=== PATIENT | male | born 1970 | race Two or more races ===

== ENCOUNTER 2020-02-17 09:10 | Emergency (ER) | payer OTHER ==
[~2020-02-17] VITALS: Ht 175.3 cm; Wt 86.2 kg
[2020-02-17] MEDS ORDERED: cloNIDine HCL 0.1 MG TAB PO ONE (09:30)
[2020-02-17] MEDS ORDERED: ACETAMINOPHEN 325 MG TAB PO ONE (10:00)
[2020-02-17 10:32] VITALS: BP 155/101
== END 2020-02-17 10:52 | disposition home or self-care (01) ==
LOC: ER 09:10
DX: U07.1 COVID-19 (principal); I16.0 Hypertensive urgency; I10 Essential (primary) hypertension
CPT/HCPCS: 71045

== ENCOUNTER 2020-12-08 00:27 | Emergency (ER) | payer OTHER ==
[~2020-12-08] VITALS: Ht 175.3 cm; Wt 87.1 kg
[2020-12-08 00:30] VITALS: BP 183/99
[2020-12-08 01:07] LABS: Basophils # (auto) 0.2 10 ^3/uL (0-0.2); Basophils % (auto) 1.8 % (0.0-2.0); Eosinophils # (auto) 0.3 10 ^3/uL (0-0.8); Eosinophils % (auto) 2.7 % (0.0-7.0); Hematocrit 44.3 % (41.0-53.0); Lymphocytes # (auto) 2.4 10 ^3/uL (0.4-5.4); Lymphocytes % (auto) 23.3 % (10.0-50.0); Mean Corpuscular Hemoglobin 29.5 pg (28.0-32.0); Mean Corpuscular Hgb Conc. 33.9 g/dL (32.0-36.0); Monocytes # (auto) 0.7 10 ^3/uL (0-1.3); Monocytes % (auto) 7.1 % (0.0-12.0); Neutrophils # (auto) 6.7 10 ^3/uL (1.6-8.6); Neutrophils % (auto) 65.1 % (37.0-80.0); Nucleated Red Blood Cells % 0.2 %; Red Cell Distribution Width 13.4 % (11.8-14.3); White Blood Cell 10.3 10^3/uL (4.4-10.8)
[2020-12-08 01:25] LABS: Alanine Aminotransferase 38 U/L (16-61); Albumin 3.6 g/dL (3.4-5.0); Anion Gap 9 (5-15); Aspartate Aminotransferase 11 U/L (15-37); BUN/Creatinine Ratio 15.1; Blood Urea Nitrogen 14 mg/dL (7-18); Calcium 8.5 mg/dL (8.5-10.1); Carbon Dioxide 25 mmol/L (21-32); Chloride 103 mmol/L (98-107); GFR African American 110 mL/min; GFR Non-African American 91 mL/min; Glucose 251 mg/dL (74-106); Potassium 3.6 mmol/L (3.5-5.1); Sodium 137 mmol/L (136-145)
[2020-12-08 01:30] LABS: Alkaline Phosphatase 192 U/L (45-117); Bilirubin, Total 0.7 mg/dL (0.2-1.0); Total Protein 7.6 g/dL (6.4-8.2)
== END 2020-12-08 07:36 | disposition left against medical advice (07) ==
LOC: ER 00:27
DX: R07.89 Other chest pain (principal); I10 Essential (primary) hypertension
CPT/HCPCS: 36415; 71045; 80053; 83880; 84484; 85025; 93005

== ENCOUNTER 2022-06-14 16:37 | Emergency (ER) | payer OTHER ==
[~2022-06-14] VITALS: Ht 175.3 cm; Wt 84.0 kg
[2022-06-14 17:30] LABS: Basophils # (auto) 0.1 10 ^3/uL (0-0.2); Basophils % (auto) 1.2 % (0.0-2.0); Eosinophils # (auto) 0.2 10 ^3/uL (0-0.8); Eosinophils % (auto) 3.1 % (0.0-7.0); Hematocrit 43.4 % (41.0-53.0); Hemoglobin 14.9 g/dL (13.5-17.5); Lymphocytes # (auto) 1.8 10 ^3/uL (0.4-5.4); Lymphocytes % (auto) 24.1 % (10.0-50.0); Mean Corpuscular Hgb Conc. 34.4 g/dL (32.0-36.0); Mean Corpuscular Volume 84.5 fL (80.0-100.0); Monocytes # (auto) 0.4 10 ^3/uL (0-1.3); Neutrophils # (auto) 4.9 10 ^3/uL (1.6-8.6); Neutrophils % (auto) 65.6 % (37.0-80.0); Nucleated Red Blood Cells % 0.2 %; Red Blood Cells 5.14 10^6/uL (4.5-5.90); Red Cell Distribution Width 13.2 % (11.8-14.3); White Blood Cell 7.4 10^3/uL (4.4-10.8)
[2022-06-14 17:47] LABS: Albumin 3.7 g/dL (3.4-5.0); Potassium 3.8 mmol/L (3.5-5.1)
[2022-06-14 17:50] LABS: BUN/Creatinine Ratio 12.6 (10.0-20.0); Bilirubin, Total 0.6 mg/dL (0.2-1.0)
[2022-06-14] MEDS ORDERED: LISI20TA28 PO (19:48)
[2022-06-14 21:40] VITALS: BP 165/88
== END 2022-06-14 22:00 | disposition home or self-care (01) ==
LOC: ER 16:37
DX: I16.0 Hypertensive urgency (principal)
CPT/HCPCS: 36415; 71045; 80053; 84484; 85025; 93005